=== PATIENT | male | born 1960 | race Caucasian/White ===

== ENCOUNTER → 2020-05-20 | Outpatient (CLI) | payer OTHER ==
[2020-05-20 09:49] LABS: ABSOLUTE NEUTROPHILS 3.5 thou/uL (1.4-8.2); BASOPHILS 0.7 % (0.0-2.0); EOSINOPHILS 6.8 % (0.0-3.0); HEMATOCRIT 44.7 % (42.0-52.0); HEMOGLOBIN 14.8 gm/dL (14.0-18.0); MCH 30.3 pg (26.0-34.0); MCV 91.8 fL (80.0-100.0); MONOCYTES 11.3 % (1.0-8.0); PLATELET COUNT 151 thou/uL (150-400); POLYS 63.2 % (36.0-66.0); RBC 4.87 mil/uL (4.50-6.00); RDW 14.7 % (10.5-14.5); WBC 5.5 thou/uL (4.0-11.0)
[2020-05-20 10:21] LABS: ALBUMIN 4.2 g/dL (3.4-5.0); ANION GAP 10 mmol/L (7-16); BUN 39 mg/dL (7-18); CALCIUM 9.1 mg/dL (8.5-10.1); CHLORIDE 105 mmol/L (98-107); CHOLESTEROL 119 mg/dL (<200); CO2 25 mmol/L (21-32); CREATININE 1.3 mg/dL (0.7-1.3); GLUCOSE 101 mg/dL (74-106); HDL CHOLESTEROL 61 mg/dL (>40); LDL CHOLESTEROL 44 mg/dL (<100); SGOT 39 U/L (15-37); SGPT 31 U/L (30-65); SODIUM 140 mmol/L (136-145); TOTAL PROTEIN 7.2 g/dL (6.4-8.2); TRIGLYCERIDE 72 mg/dL (<150); VLDL 14 mg/dL (<40)
[2020-05-20 10:23] LABS: POTASSIUM 4.1 mmol/L (3.5-5.1)
[2020-05-21 02:06] LABS: GLYCOHEMOGLOBIN (HGB A1C) 5.4 % (4.8-5.6)
== END ==
LOC: LAB 08:47
PROVIDERS: ATTEND Family Medicine
DX: E78.2 Mixed hyperlipidemia (principal); I10 Essential (primary) hypertension; N40.0 Benign prostatic hyperplasia without lower urinary tract symptoms; R73.03 Prediabetes; M17.0 Bilateral primary osteoarthritis of knee; Z00.00 Encounter for general adult medical examination without abnormal findings

== ENCOUNTER → 2020-11-15 | Outpatient (CLI) | payer OTHER ==
[2020-11-15 11:07] LABS: ALBUMIN 3.7 g/dL (3.4-5.0); ANION GAP 9 mmol/L (7-16); BUN 32 mg/dL (7-18); CHLORIDE 106 mmol/L (98-107); CHOLESTEROL 125 mg/dL (<200); CO2 25 mmol/L (21-32); CREATININE 1.5 mg/dL (0.7-1.3); GLUCOSE 110 mg/dL (74-106); HDL CHOLESTEROL 56 mg/dL (>40); LDL CHOLESTEROL 57 mg/dL (<100); POTASSIUM 3.9 mmol/L (3.5-5.1); SGOT 20 U/L (15-37); SGPT 19 U/L (30-65); SODIUM 140 mmol/L (136-145); TC:HDL 2.2 Ratio (Not establshd); TOTAL BILIRUBIN 0.6 mg/dL (0.2-1.0); TRIGLYCERIDE 63 mg/dL (<150); VLDL 13 mg/dL (<40)
== END ==
LOC: LAB 10:13
PROVIDERS: ATTEND Family Medicine
DX: I10 Essential (primary) hypertension (principal); E78.2 Mixed hyperlipidemia

== ENCOUNTER → 2021-03-24 | Outpatient (CLI) | payer OTHER | LOC: SJCVCIMAG 14:13 | PROVIDERS: ATTEND Internal Medicine | DX: I49.1 Atrial premature depolarization (principal); R06.00 Dyspnea, unspecified; I10 Essential (primary) hypertension; E78.5 Hyperlipidemia, unspecified ==

== ENCOUNTER → 2021-04-28 | Outpatient (CLI) | payer OTHER ==
[2021-04-28 10:51] LABS: ABSOLUTE NEUTROPHILS 3.2 thou/uL (1.4-8.2); BASOPHILS 1.1 % (0.0-2.0); EOSINOPHILS 5.9 % (0.0-3.0); HEMATOCRIT 42.6 % (42.0-52.0); HEMOGLOBIN 13.8 gm/dL (14.0-18.0); LYMPHOCYTES 19.8 % (24.0-44.0); MCH 29.5 pg (26.0-34.0); MCHC 32.5 g/dL (28.0-37.0); MCV 90.9 fL (80.0-100.0); PLATELET COUNT 169 thou/uL (150-400); POLYS 64.2 % (36.0-66.0); RBC 4.69 mil/uL (4.50-6.00); RDW 14.4 % (10.5-14.5)
[2021-04-28 11:03] LABS: ALBUMIN 3.5 g/dL (3.4-5.0); ANION GAP 5 mmol/L (7-16); BUN 29 mg/dL (7-18); CALCIUM 8.7 mg/dL (8.5-10.1); CHLORIDE 107 mmol/L (98-107); CHOLESTEROL 118 mg/dL (<200); CO2 29 mmol/L (21-32); CREATININE 1.6 mg/dL (0.7-1.3); GLUCOSE 111 mg/dL (74-106); HDL CHOLESTEROL 57 mg/dL (>40); LDL CHOLESTEROL 47 mg/dL (<100); SGOT 25 U/L (15-37); SGPT 29 U/L (30-65); SODIUM 141 mmol/L (136-145); TC:HDL 2.1 Ratio (Not establshd); TOTAL BILIRUBIN 0.5 mg/dL (0.2-1.0); TOTAL PROTEIN 6.4 g/dL (6.4-8.2); TRIGLYCERIDE 72 mg/dL (<150); VLDL 14 mg/dL (<40)
[2021-04-29 00:06] LABS: GLYCOHEMOGLOBIN (HGB A1C) 5.7 % (4.8-5.6)
== END ==
LOC: LAB 10:06
PROVIDERS: ATTEND Family Medicine
DX: M17.0 Bilateral primary osteoarthritis of knee (principal); N40.0 Benign prostatic hyperplasia without lower urinary tract symptoms; R73.03 Prediabetes; I10 Essential (primary) hypertension; E78.2 Mixed hyperlipidemia